=== PATIENT | female | born 1970 | race Caucasian/White ===

== ENCOUNTER 2018-10-17 08:51 | Emergency (ER) | payer BC ==
[~2018-10-17] VITALS: Ht 165.1 cm; Wt 127.0 kg
[2018-10-17] MEDS ORDERED: DOXYCYCLINE 10100 MG PO (09:14)
[2018-10-17] MEDS ORDERED: NEURONTIN 300300 M1 PO (09:15)
[2018-10-17] MEDS ORDERED: PROTONIX40 M1 PO (09:15)
[2018-10-17] MEDS ORDERED: TRAZODONE HCL50 MG PO (09:16)
[2018-10-17 12:34] LABS: HEMATOCRIT 37.3 % (37.0-47.0); HEMOGLOBIN 12.6 gm/dL (12.0-15.0); MCHC 33.8 g/dL (28.0-37.0); MCV 88.7 fL (80.0-100.0); RBC 4.2 mil/uL (4.20-5.00); RDW 13.2 % (10.5-14.5); WBC 9.9 thou/uL (4.0-11.0)
[2018-10-17 12:40] LABS: CALCIUM 8.8 mg/dL (8.5-10.1); CREATININE 0.6 mg/dL (0.6-1.0); POTASSIUM 3.9 mmol/L (3.5-5.1)
[2018-10-17 13:24] VITALS: BP 160/79
== END 2018-10-17 13:27 | disposition home or self-care (01) ==
LOC: ER 08:51
PROVIDERS: Emergency Medicine
DX: R60.0 Localized edema (principal); J44.9 Chronic obstructive pulmonary disease, unspecified; E66.9 Obesity, unspecified; G62.9 Polyneuropathy, unspecified; G47.00 Insomnia, unspecified; K21.9 Gastro-esophageal reflux disease without esophagitis; Z68.42 Body mass index [BMI] 45.0-49.9, adult